=== PATIENT | male | born 1965 | race Caucasian/White ===

== ENCOUNTER 2022-09-24 13:28 | Outpatient (REF) | payer OTHER, SELFPAY ==
--- NOTE | ~2022-09-24 | XR_ITS ---
EXAMINATION: XR CERVICAL SPINE CLINICAL INFORMATION: Radiculopathy, cervical region COMPARISON: None available. TECHNIQUE: 3 views of the cervical spine were obtained. FINDINGS: Patient is status post ACDF at the C5-C6 level. No abnormal prevertebral soft tissue swelling is seen. Remaining disc spaces are maintained. No acute fracture or subluxation is identified. Hardware appears intact. There is no instability noted on flexion-extension views. XR/XR cervical spine 4V IMPRESSION: Satisfactory appearance without instability identified in the cervical spine status post ACDF at the C5-C6 level.
== END 2022-09-24 13:29 | disposition home or self-care (01) ==
LOC: HO.HOSX 13:28
PROVIDERS: PCP Internal Medicine; Visit Provider Physician Assistant
DX: M54.12 Radiculopathy, cervical region (principal); G95.9 Disease of spinal cord, unspecified
CPT/HCPCS: 72050; 99212

== ENCOUNTER 2022-12-29 14:33 | Outpatient (REF) | payer OTHER, SELFPAY ==
--- NOTE | ~2022-12-29 | XR_ITS ---
EXAMINATION: XR CERVICAL SPINE CLINICAL INFORMATION: Disease of spinal cord, unspecified COMPARISON: 09/24/2022 TECHNIQUE: 3 views of the cervical spine were obtained. FINDINGS: C6 and C7 are obscured by the soft tissues of the patient's shoulders. This obscures the inferior half of the fusion. The patient's earrings partially obscure the C2 vertebral bodies on lateral views. The patient is status post ACDF at the C5-C6 level. Prevertebral soft tissues are within normal limits. There is no disc space narrowing from C2 through C5. There is no change in alignment on the flexion and extension views from C2 to C5. On the AP view, there is no change in appearance compared to 09/24/2022. Hardware appears intact. XR/XR cervical spine 4V IMPRESSION: 1. Status post ACDF at C5-C6 without evidence of hardware complication. 2. No change in alignment on the flexion and extension views from C2 through C5. C6 and C7 are obscured by the soft tissues of the patient's shoulders.
== END 2022-12-29 14:34 | disposition home or self-care (01) ==
LOC: HO.HOSX 14:33
PROVIDERS: Visit Provider Neurological Surgery
DX: G95.9 Disease of spinal cord, unspecified (principal)
CPT/HCPCS: 72050; 99212

== ENCOUNTER 2022-12-29 14:50 | Outpatient (AMB) | payer OTHER, SELFPAY ==
--- NOTE | 2022-12-29 14:57 | A.SPINEOV_ITS ---
Intake Intake Visit Reasons: 3 month f/u with xrays Intake Note: Mr. Oneal is here today for his 3mo f/u w/x-rays. Director Digital Required: No Assessment & Plan Assessment & Plan (1) Cervical myelopathy: Code(s): G95.9 - Disease of spinal cord, unspecified Plan Butch is a pleasant 57-year-old male who presents the office for 3 month follow-up status post C5-6 ACDF. He reports that the majority of his preoperative symptoms have subsided, and he is very happy with his surgery. He does state that he still has some tingling that comes and goes in his bilateral 4th and 5th digits. He states he no longer takes any medication for his pain, and feels that is manageable. His strength is 5/5 in his upper extremities, and he reports no UE limitations to his ADLs. His cervical x-rays from today were reviewed, and look fantastic. The patient was seen alongside Dr. Sepulveda, who agreed that the patient can be discharged from our services without need for future follow up appointments. He was encouraged reach back out our office if needed. Total amount of time spent in this visit was 20 minutes in discussion of symptoms, x-ray imaging results and subsequent plan of care Hemal Sepulveda MD,PhD [facility] Orders: Orders XR cervical spine 4V Today G95.9 - Disease of spinal cord, unspecified Coding Level of Care Code Est Pt Level 3 (58088) Diagnoses Cervical myelopathy G95.9
== END 2022-12-29 15:11 | disposition home or self-care (01) ==
PROVIDERS: PCP Internal Medicine; Visit Provider Neurological Surgery
DX: G95.9 Disease of spinal cord, unspecified (principal)
CPT/HCPCS: 99213